=== PATIENT | female | born 1970 | race Caucasian/White ===

== ENCOUNTER 2021-07-21 16:01 | Outpatient (REF) | payer BC, SELFPAY ==
--- NOTE | 2021-07-21 14:40 | PAPFT_PTH ---
PATIENT: Juliet Terrazas LOC: [facility] U#:[id number] AGE/SX: 51/F ROOM: RE07/21/[address]: Marleen Villa APRN : 1970 BED: DIS: 07/21/2021 SPEC #: [id number] RECD: 07/21/21 18:12 STATUS: ALEX RERon #: [id number] ABBY: 07/21/21 14:[address]: Marleen Villa DEPT: [facility] Cytology RECD BY: Nidhi Barker Tissues: 1 - CX/ENDOCX FOR PAP SMEARS Procedures: PAP THIN PREP/UVM Screening HPV DNA PROBE Comments: [id number]
== END 2021-07-21 16:02 | disposition home or self-care (01) ==
LOC: LBN 16:01
DX: Z12.4 Encounter for screening for malignant neoplasm of cervix (principal); Z11.51 Encounter for screening for human papillomavirus (HPV)
CPT/HCPCS: 88142; 87624

== ENCOUNTER 2021-08-08 02:12 | Outpatient (CLI) | payer BC, SELFPAY ==
[2021-08-08 08:32] LABS: ALT 25 U/L (14-59); AST 15 U/L (15-37); Albumin 4.5 g/dL (3.4-5.0); Alkaline Phosphatase 54 U/L (46-116); Anion Gap 13.4 mmol/L (3-11); BUN 21 mg/dL (7-18); Bilirubin, Total 0.7 mg/dL (0.2-1.0); CO2 23.6 mmol/L (21.0-32.0); CREATININE 0.9 mg/dL (0.55-1.02); Calcium 10.2 mg/dL (8.5-10.1); Calculated LDL 146 mg/dL (<100); Chloride 104 mmol/L (98-107); Cholesterol 214 mg/dL (<200); Glucose 95 mg/dL (74-106); HDL Cholesterol 54 mg/dL (40-60); Potassium 4.5 mmol/L (3.5-5.1); Sodium 141 mmol/L (136-145); Total Protein 7.7 g/dL (6.4-8.2); Triglyceride 71 mg/dL (<150)
== END 2021-08-08 02:13 | disposition home or self-care (01) ==
LOC: LBO 02:12
DX: Z00.00 Encounter for general adult medical examination without abnormal findings (principal); E78.5 Hyperlipidemia, unspecified
CPT/HCPCS: 36415; 80053; 80061

== ENCOUNTER 2021-09-05 01:48 | Outpatient (CLI) | payer BC, SELFPAY ==
--- NOTE | 2021-09-05 06:15 | DI.MAMMO_ITS ---
Exam(s) MAMMO SCREENING EXAM: MAMMO SCREENING CLINICAL HISTORY: screening,z12.39. TECHNIQUE: Bilateral full field digital CC and MLO mammographic images were obtained with 3D tomosyn thesis and utilizing computer aided detection (CAD). COMPARISON: Prior outside 2017 mammograms were reviewed,. Also reviewed prior outside right breast ultrasound performed 01/19/2017 FINDINGS: There has been no significant change in the appearance and distribution of the fibroglandular tissue Small benign-appearing nodule in the upper outer quadrant of the right breast is again noted, consist ent with benign intramammary lymph node. There are no new spiculated masses nor malignant appearing microcalcification groups. There is no significant architectural distortion nor skin thickening-retraction. IMPRESSION: Stable benign findings. No radiographic evidence of malignancy. BI-RADS Category 2 - Benign Findings Breast Density - Category B - Scattered areas of fibroglandular density Breast density Category C or D implies that the patient has dense breast tissue. Dense breast tissue can make it harder to find cancer on a mammogram. Dense breast tissue is also associated with an incr eased risk of breast cancer. This information about the result of the mammogram report was provided to the patient to raise their awareness. Use this report when you speak with the patient about their risks for breast cancer, which includes their family history. At that time, you may recommend additional screening tests (Ultrasoun d or MRI) as these tests may add significant information. A negative radiographic report should not delay biopsy if a dominant or clinically suspicious mass is present. Up to ten percent of cancers are not identified on mammography. A negative report may reinforce clinical impression. Adenosis and dense breasts may obscure an underlying neoplasm. False positive reports average 6 to 10%. Patient will receive a letter notifying them of these results.
== END 2021-09-05 02:08 ==
DX: Z12.31 Encounter for screening mammogram for malignant neoplasm of breast (principal); N63.11 Unspecified lump in the right breast, upper outer quadrant
CPT/HCPCS: 77063; 77067

== ENCOUNTER 2022-12-08 01:59 | Outpatient (CLI) | payer BC, SELFPAY ==
[2022-12-09 09:00] LABS: DHEA Sulfate 46 ug/dL (56-283)
[2022-12-15 15:30] LABS: Dexamethasone Suppression 19.6 ug/dL (See Note)
== END 2022-12-08 02:00 | disposition home or self-care (01) ==
LOC: LBO 01:59
PROVIDERS: PCP Nurse Practitioner Family; Visit Provider Nurse Practitioner Family
DX: F41.8 Other specified anxiety disorders; E27.8 Other specified disorders of adrenal gland; L98.8 Other specified disorders of the skin and subcutaneous tissue
CPT/HCPCS: 36415; 82627; 82533

== ENCOUNTER 2022-12-11 09:22 | Outpatient (REF) | payer BC, SELFPAY ==
[2022-12-15 10:37] LABS: Urine Volume 2000 mL
[2022-12-17 02:16] LABS: Metanephrines, U 90 mcg/24 h; Normetanephrine, U 234 mcg/24 h; Total Metanephrines, U 324 mcg/24 h; Urine Volume 2000 mL
== END 2022-12-11 09:23 | disposition home or self-care (01) ==
LOC: LBN 09:22
PROVIDERS: PCP Nurse Practitioner Family; Visit Provider Nurse Practitioner Family
DX: E27.8 Other specified disorders of adrenal gland (principal); F41.8 Other specified anxiety disorders
CPT/HCPCS: 81050; 82384; 83835

== ENCOUNTER 2023-03-29 04:12 | Outpatient (CLI) | payer BC, SELFPAY ==
[2023-03-29 13:24] LABS: TSH (W/Ref FT4) 1.03 uIU/mL (0.36-3.74)
[2023-03-30 10:25] LABS: Lyme Ab w Rflx to Lyme Confirm Negative (Negative)
[2023-03-31 23:17] LABS: Anaplasma phagocytophilum Negative (Negative); B. miyamotoi PCR Negative (Negative); Babesia divergens/MO-1 Negative (Negative); Babesia duncani Negative (Negative); Babesia microti Negative (Negative); Ehrlichia chaffeensis Negative (Negative); Ehrlichia ewingii/canis Negative (Negative); Ehrlichia muris eauclairensis Negative (Negative)
== END 2023-03-29 04:13 | disposition home or self-care (01) ==
LOC: LOS 04:12
PROVIDERS: PCP Nurse Practitioner Family; Visit Provider Nurse Practitioner Family
DX: R53.83 Other fatigue (principal)
CPT/HCPCS: 36415; 87798; 84443; 86618

== ENCOUNTER 2024-09-04 14:32 | Outpatient (REF) | payer BC, SELFPAY ==
[2024-09-04 14:20] LABS: Anion Gap 11.1 mmol/L (3-11); BUN 12 mg/dL (7-18); CO2 24.9 mmol/L (21.0-32.0); CREATININE 0.7 mg/dL (0.55-1.02); Calcium 9.7 mg/dL (8.5-10.1); Chloride 107 mmol/L (98-107); Estimated GFR 103.35 (mL/min/1.73m2); Glucose 98 mg/dL (74-106); Potassium 4.4 mmol/L (3.5-5.1); Sodium 143 mmol/L (136-145)
[2024-09-05 10:11] LABS: HIV-1/2 Ag & Ab Screen Negative (Negative)
[2024-09-05 12:13] LABS: Hepatitis C Ab w Rflx HCV PCR Negative (Negative)
[2024-09-05 12:16] LABS: HBs Antibody, Quant <3.1 mIU/mL (See Note); Hep B Surface Ab Negative (See Note); Hepatitis B Core Antibody Negative (Negative); Hepatitis B Surface Antigen Negative (Negative)
== END 2024-09-04 14:33 | disposition home or self-care (01) ==
LOC: LBN 14:32
PROVIDERS: PCP Nurse Practitioner Family; Visit Provider Nurse Practitioner Family
DX: Z11.59 Encounter for screening for other viral diseases (principal); R73.9 Hyperglycemia, unspecified; Z11.4 Encounter for screening for human immunodeficiency virus [HIV]; F41.9 Anxiety disorder, unspecified; N95.9 Unspecified menopausal and perimenopausal disorder; L98.9 Disorder of the skin and subcutaneous tissue, unspecified
CPT/HCPCS: 80048; 86704; 86706; 86803; 87340; 87389; 83036

== ENCOUNTER 2024-10-19 01:14 | Outpatient (CLI) | payer BC, SELFPAY ==
--- NOTE | 2024-10-19 07:47 | DI.MAMMO_ITS ---
Exam(s) MAMMO SCREENING EXAM: MAMMO SCREENING CLINICAL HISTORY: screening,Z12.39 TECHNIQUE: Bilateral full field digital CC and MLO mammographic images were obtained with 3D tomosyn thesis and utilizing computer aided detection (CAD). COMPARISON: Available for comparison. FINDINGS: Masses/Architectural Distortion: No suspicious masses or areas of architectural distortion are presen t. There is a stable nodule in the upper outer quadrant of the right breast. Microcalcifications: No suspicious pleomorphic-type are seen. Skin Thickening/Nipple Retraction: None. IMPRESSION: 1. No significant interval change with no specific features of malignancy noted. 2. Unless there is more urgent need, screening mammography is recommended, as per [place] [employer] guidelines. BI-RADS Category 2 - Benign Findings Breast Density - Category B - Scattered areas of fibroglandular density Breast density category C or D implies that the patient has dense breast tissue. Dense breast tissue is very common and is not abnormal but dense breast tissue can make it harder to find cancer on a ma mmogram. Also, dense breast tissue may increase their breast cancer risk. This information about the result of the mammogram report was provided to the patient to raise their awareness. Use this report when you speak with the patient about their risks for breast cancer, which includes their family hist ory. At that time, you may recommend for more screening tests (Ultrasound or MRI) as they might be us eful based on their risk. A negative radiographic report should not delay biopsy if a dominant or clinically suspicious mass is present. Up to ten percent of cancers are not identified on mammography. A negative report may reinforce clinical impression. Adenosis and dense breasts may obscure an underlying neoplasm. False positive reports average 6 to 10%. Patient will receive a letter notifying them of these results.
== END 2024-10-19 01:34 ==
LOC: DI 01:14
PROVIDERS: PCP Nurse Practitioner Family; Visit Provider Nurse Practitioner Family
DX: Z12.31 Encounter for screening mammogram for malignant neoplasm of breast (principal); R92.323 Mammographic fibroglandular density, bilateral breasts; D24.1 Benign neoplasm of right breast
CPT/HCPCS: 77063; 77067